=== PATIENT | male | born 1990 | race Hispanic/Latino ===

== ENCOUNTER 2024-11-09 19:10 | Emergency (ER) | payer SELFPAY ==
[2024-11-09] MEDS ORDERED: HYDROcodone/Acetaminophen 10/325 mg Tablet ONE (19:33)
== END 2024-11-09 21:21 | disposition home or self-care (01) ==
LOC: NAV ERS 19:10
DX: S82.851A Displaced trimalleolar fracture of right lower leg, initial encounter for closed fracture (principal); X50.1XXA Overexertion from prolonged static or awkward postures, initial encounter
CPT/HCPCS: 27818; 99283